=== PATIENT | female | born 1995 | race African-American/Black ===

== ENCOUNTER 2017-07-29 06:53 | Emergency (ER) | payer MEDICAID ==
[2017-07-29] MEDS ORDERED: Sodium Chloride 0.9% 10 ML Syringe FLUSH PRN (07:48)
[2017-07-29] MEDS ORDERED: Ondansetron 4 MG/2 ML SDV IVPUSH ONE (07:48)
[2017-07-29] MEDS ORDERED: HYDROmorphone 0.5 MG/0.5 ML Syringe IVPUSH ONE (07:49)
--- NOTE | 2017-07-29 07:54 | EDM.PDOC ---
ED HPI GENERAL MEDICAL PROBLEM - General Chief Complaint: Abdominal Pain Stated Complaint: LEFT PAIN IN STOMACH AREA Time Seen by Provider: 07/29/17 07:51 Source of Information: Reports: Patient History Limitations: Reports: No Limitations - History of Present Illness INITIAL COMMENTS - FREE TEXT/NARRATIVE: pt arrived with acute pain in the left lower abdoman. She was at work at [employer] and she suddenly developed pain at about 2 am. She had a period the first part of the month but is not on any control. She has no history of ovarian cysts. Onset: Today, Other ( This started at 2 am today) Duration: Hour(s):, Getting Worse Location: Reports: Abdomen Associated Symptoms: Reports: Other ( severe left lower abdomanal pain. ) Left Lower Abdomen Pain Score (Numeric/FACES): 10 - Related Data Allergies Allergy/AdvReac Type Severity Reaction Status Date / Time bee venom protein (honey bee) Allergy Hives Verified 07/29/17 07:22 lactose Allergy Abdominal Verified 07/29/17 07:22 Pain peanut Allergy Hives Verified 07/29/17 07:22 Home Meds: Home Meds NK [No Known Home Meds] 07/29/17 [History] Past Medical History - Past Health History Medical/Surgical History: Denies Medical/Surgical History Social & Family History - Tobacco Use Smoking Status *Q: Current Every Day Smoker Years of Tobacco use: 4 Packs/Tins Daily: 0.5 - Caffeine Use Caffeine Use: Reports: Tea - Recreational Drug Use Recreational Drug Use: Yes Recreational Drug Type: Reports: Marijuana/Hashish ED ROS GENERAL - Review of Systems Review Of Systems: See Below Constitutional: Reports: No Symptoms HEENT: Reports: No Symptoms Respiratory: Reports: No Symptoms Cardiovascular: Reports: No Symptoms Endocrine: Reports: No Symptoms GI/Abdominal: Reports: Abdominal Pain, Other (pt has severe pain in the left lower abdoman. ) : Reports: No Symptoms Musculoskeletal: Reports: No Symptoms Skin: Reports: No Symptoms ED EXAM, GI/ABD - Physical Exam Exam: See Below Text/Narrative:: At 2 am pt developed a sudden onset of pain and she became very uncomfortable. She continued to be uncomfortable until arrival here. Exam Limited By: No Limitations General Appearance: Alert, Severe Distress Eyes: Bilateral: Normal Appearance, EOMI Ears: Normal TMs Nose: Normal Inspection Throat/Mouth: Normal Inspection Head: Atraumatic Neck: Normal Inspection Respiratory/Chest: No Respiratory Distress Cardiovascular: Regular Rate, Rhythm GI/Abdominal Exam: Soft, Other (pt is very tender in the left lower abdoman. ) (Female) Exam: Other ( no change in vag discharge. ) Rectal (Female) Exam: Deferred Back Exam: Normal Inspection Extremities: Normal Inspection Neurological: Alert, Oriented, Normal Cognition Psychiatric: Normal Affect Course - Vital Signs Last Recorded V/S: Last Vital Signs Temp 35.9 C 07/29/17 07:17 Pulse 74 07/29/17 08:59 Resp 16 07/29/17 08:59 BP 142/73 H 07/29/17 08:59 Pulse Ox 97 07/29/17 08:59 - Orders/Labs/Meds Orders: Active Orders 24 hr Category Date Time Status Pelvis Non OB Comp [US] Stat Exams 07/29/17 08:38 Taken Transvaginal Non OB [US] Stat Exams 07/29/17 08:38 Taken Sodium Chloride 0.9% [Normal Saline] 1,000 ml Med 07/29/17 08:00 Active IV ASDIRECTED Sodium Chloride 0.9% [Saline Flush] Med 07/29/17 07:48 Active 10 ml FLUSH ASDIRECTED PRN Saline Lock Insert [OM.PC] Routine Oth 07/29/17 07:48 Ordered Medication Orders Sodium Chloride (Normal Saline) 1,000 mls @ 999 mls/hr IV ASDIRECTED LISA Last Admin: 07/29/17 08:07 Dose: 999 mls/hr Sodium Chloride (Saline Flush) 10 ml FLUSH ASDIRECTED PRN PRN Reason: Keep Vein Open Last Admin: 07/29/17 08:07 Dose: 10 ml Labs: Laboratory Tests 07/29/17 07/29/17 07/29/17 Range/Units 07:58 07:58 08:00 WBC 6.6 (4.5-11.0) K/uL RBC 4.17 (3.30-5.50) M/uL Hgb 12.4 (12.0-15.0) g/dL Hct 36.5 (36.0-48.0) % MCV 88 (80-98) fL MCH 30 (27-31) pg MCHC 34 (32-36) % Plt Count 248 (150-400) K/uL Neut % (Auto) 55 (36-66) % Lymph % (Auto) 37 (24-44) % [place] % (Auto) 8 H (2-6) % Eos % (Auto) 1 L (2-4) % Baso % (Auto) 1 (0-1) % Sodium 141 (140-148) mmol/L Potassium 3.9 (3.6-5.2) mmol/L Chloride 105 (100-108) mmol/L Carbon Dioxide 27 (21-32) mmol/L Anion Gap 9.1 (5.0-14.0) mmol/L BUN 5 L (7-18) mg/dL Creatinine 0.7 (0.6-1.0) mg/dL Est Cr Clr Drug Dosing 106.93 mL/min Estimated GFR (MDRD) > 60 (>60) Glucose 88 (74-106) mg/dL Calcium 8.7 (8.5-10.1) mg/dL Total Bilirubin 0.3 (0.2-1.0) mg/dL AST 17 (15-37) U/L ALT 19 (12-78) U/L Alkaline Phosphatase 51 (46-116) U/L C-Reactive Protein 0.04 (0.0-0.3) mg/dL Total Protein 6.2 L (6.4-8.2) g/dL Albumin 3.8 (3.4-5.0) g/dL Globulin 2.4 (2.3-3.5) g/dL Albumin/Globulin Ratio 1.6 (1.2-2.2) Urine Color Urine Appearance Urine pH (4.5-8.0) Ur Specific [place] (1.008-1.030) Urine Protein (NEGATIVE) mg/dL Urine Glucose (UA) (NEGATIVE) mg/dL Urine Ketones (NEGATIVE) mg/dL Urine Occult Blood (NEGATIVE) Urine Nitrite (NEGATIVE) Urine Bilirubin (NEGATIVE) Urine Urobilinogen (NORMAL) mg/dL Ur Leukocyte Esterase (NEGATIVE) Urine RBC (0-5) Urine WBC (0-5) Ur Epithelial Cells Amorphous Sediment Urine Bacteria Urine Mucus Urine HCG, Qual Negative 07/29/17 Range/Units 08:00 WBC (4.5-11.0) K/uL RBC (3.30-5.50) M/uL Hgb (12.0-15.0) g/dL Hct (36.0-48.0) % MCV (80-98) fL MCH (27-31) pg MCHC (32-36) % Plt Count (150-400) K/uL Neut % (Auto) (36-66) % Lymph % (Auto) (24-44) % [place] % (Auto) (2-6) % Eos % (Auto) (2-4) % Baso % (Auto) (0-1) % Sodium (140-148) mmol/L Potassium (3.6-5.2) mmol/L Chloride (100-108) mmol/L Carbon Dioxide (21-32) mmol/L Anion Gap (5.0-14.0) mmol/L BUN (7-18) mg/dL Creatinine (0.6-1.0) mg/dL Est Cr Clr Drug Dosing mL/min Estimated GFR (MDRD) (>60) Glucose (74-106) mg/dL Calcium (8.5-10.1) mg/dL Total Bilirubin (0.2-1.0) mg/dL AST (15-37) U/L ALT (12-78) U/L Alkaline Phosphatase (46-116) U/L C-Reactive Protein (0.0-0.3) mg/dL Total Protein (6.4-8.2) g/dL Albumin (3.4-5.0) g/dL Globulin (2.3-3.5) g/dL Albumin/Globulin Ratio (1.2-2.2) Urine Color Yellow Urine Appearance Clear Urine pH 7.0 (4.5-8.0) Ur Specific [place] 1.005 L (1.008-1.030) Urine Protein Negative (NEGATIVE) mg/dL Urine Glucose (UA) Normal (NEGATIVE) mg/dL Urine Ketones Negative (NEGATIVE) mg/dL Urine Occult Blood Negative (NEGATIVE) Urine Nitrite Negative (NEGATIVE) Urine Bilirubin Negative (NEGATIVE) Urine Urobilinogen Normal (NORMAL) mg/dL Ur Leukocyte Esterase Negative (NEGATIVE) Urine RBC Not seen (0-5) Urine WBC Not seen (0-5) Ur Epithelial Cells Moderate Amorphous Sediment Not seen Urine Bacteria Few Urine Mucus Not seen Urine HCG, Qual Meds: Medications Generic Name Dose Route Start Last Admin Trade Name Freq PRN Reason Stop Dose Admin Sodium Chloride 1,000 mls @ 999 mls/hr 07/29/17 08:00 07/29/17 08:07 Normal Saline IV 999 mls/hr ASDIRECTED LISA Administration Sodium Chloride 10 ml 07/29/17 07:48 07/29/17 08:07 Saline Flush FLUSH 10 ml ASDIRECTED PRN Administration Keep Vein Open Discontinued Medications Generic Name Dose Route Start Last Admin Trade Name Lucasq PRN Reason Stop Dose Admin Hydromorphone HCl 0.5 mg 07/29/17 07:49 07/29/17 08:11 Dilaudid IVPUSH 07/29/17 07:50 0.5 mg ONETIME ONE Administration Ketorolac Tromethamine 30 mg 07/29/17 09:37 07/29/17 09:48 Toradol IVPUSH 07/29/17 09:38 30 mg ONETIME ONE Administration Ondansetron HCl 4 mg 07/29/17 07:48 07/29/17 08:09 Zofran IVPUSH 07/29/17 07:49 4 mg ONETIME ONE Administration - Re-Assessments/Exams Free Text/Narrative Re-Assessment/Exam: 07/29/17 09:54 pt had normal lab work. She had a US which showed some free fluid in the abdoman like A ovarian cyst could have ruptured. Departure - Departure Time of Disposition: 10:21 Disposition: Home, Self-Care 01 Condition: Fair Clinical Impression: Ovarian cyst - Discharge Information Referrals: PCP,None [Primary Care Provider] - Forms: ED Department Discharge Care Plan Goals: rtc if pain should get alot worse. torodol 10mg qid for the next 4-5 days, norco 5/325 q6h prn for pain-severe - My Orders Last 24 Hours: My Active Orders 07/29/17 07:48 Sodium Chloride 0.9% [Saline Flush] 10 ml FLUSH ASDIRECTED PRN Saline Lock Insert [OM.PC] Routine 07/29/17 08:00 Sodium Chloride 0.9% [Normal Saline] 1,000 ml IV ASDIRECTED 07/29/17 08:38 Pelvis Non OB Comp [US] Stat Transvaginal Non OB [US] Stat - Assessment/Plan Last 24 Hours: My Active Orders 07/29/17 07:48 Sodium Chloride 0.9% [Saline Flush] 10 ml FLUSH ASDIRECTED PRN Saline Lock Insert [OM.PC] Routine 07/29/17 08:00 Sodium Chloride 0.9% [Normal Saline] 1,000 ml IV ASDIRECTED 07/29/17 08:38 Pelvis Non OB Comp [US] Stat Transvaginal Non OB [US] Stat
[2017-07-29] MEDS ORDERED: Sodium Chloride 0.9% 1,000 ML IV SCH (08:00)
[2017-07-29] MEDS ORDERED: Ketorolac 30 MG/ML SDV IVPUSH ONE (09:37)
--- NOTE | 2017-07-29 10:52 | US ---
Pelvis Non OB Comp, Transvaginal Non OB INDICATION: severe left lower abdominal pain. FINDINGS: The uterus measures 9.1 x 3.2 x 4.5 cm. Endometrial stripe measures 9 mm. Left and right ov rula are normal in appearance with normal vascular flow. Small amount of free fluid adjacent to the left ovary. Exam otherwise negative. IMPRESSION: Normal pelvic ultrasound. Small amount of free fluid adjacent to the left ovary could rep resent a recently ruptured follicle.
== END 2017-07-29 11:00 | disposition home or self-care (01) ==
LOC: JP.ED 06:53
DX: N83.202 Unspecified ovarian cyst, left side (principal); F17.210 Nicotine dependence, cigarettes, uncomplicated; Z91.011 Allergy to milk products; Z91.030 Bee allergy status; Z91.010 Allergy to peanuts
CPT/HCPCS: 36415; 76830; 76856; 80053; 81001; 81025; 85025; 86140; 96361; 96374; 96375; 99284; J1170; J1885; J2405; J7040; J7050; J7030

== ENCOUNTER 2018-01-03 12:44 | Emergency (ER) | payer MEDICAID ==
[2018-01-03] MEDS ORDERED: Ondansetron 4 MG/2 ML SDV IVPUSH ONE (14:13)
[2018-01-03] MEDS ORDERED: Sodium Chloride 0.9% 10 ML Syringe FLUSH PRN (14:13)
[2018-01-03] MEDS ORDERED: Sodium Chloride 0.9% 1,000 ML IV SCH ×2 (14:15→16:00)
--- NOTE | 2018-01-03 14:41 | EDM.PDOC ---
ED HPI GENERAL MEDICAL PROBLEM - General Chief Complaint: Gastrointestinal Problem Stated Complaint: vomiting PG 11 WEEKS Time Seen by Provider: 01/03/18 14:00 Source of Information: Reports: Patient History Limitations: Reports: No Limitations - History of Present Illness INITIAL COMMENTS - FREE TEXT/NARRATIVE: Amado is an otherwise healthy 22-year-old female who presents to the emergency department today with nausea, vomiting, diarrhea that started yesterday. Patient reports several episodes of nonbloody diarrhea since that time. Patient has been unable to keep any fluids/food or medication down. She has not taken anything for her symptoms. Patient is a , she is estimated 11 weeks , she denies any complaints. Patient does complain of mild abdominal pain, lower pelvic in nature. 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 ED EXAM, GI/ABD - Physical Exam Exam: See Below Exam Limited By: No Limitations General Appearance: Alert, WD/WN, No Apparent Distress Nose: Normal Inspection Throat/Mouth: Normal Oropharynx, Other (Modestly dry mucous membranes) Head: Atraumatic Respiratory/Chest: No Respiratory Distress, Lungs Clear Cardiovascular: Normal Peripheral Pulses, Regular Rate, Rhythm, No Murmur GI/Abdominal Exam: Normal Bowel Sounds, Soft, Tender (Mild tenderness noted to mid pelvic region on exam, no tenderness at McBurney's point. No guarding or rebound), Other Back Exam: Normal Inspection Extremities: Normal Inspection, Normal Range of Motion Neurological: Alert, Oriented Psychiatric: Normal Affect, Normal Mood Skin Exam: Warm, Dry, Intact Lymphatic: No Adenopathy Course - Vital Signs Last Recorded V/S: Last Vital Signs Temp 36.8 C 01/03/18 14:11 Pulse 70 01/03/18 14:36 Resp 16 01/03/18 14:36 BP 108/60 01/03/18 14:36 Pulse Ox 100 01/03/18 14:36 Aleksandra is an otherwise healthy 22 year old female who presents to the ED today with c/o diarrhea, nausea, and vomiting since yesterday. Please refer to HPI and focused exam. Patient arrives here hemodynamically stable and afebrile. Exam is reassuring. NO focal tenderness to indicate an acute appendicitis. Patient was given 2 liters of NS here in the ED with IV Zofran and is feeling much better. Tolerating oral. Blood work reassuring with normal white count and stable HGB. CMP returns with potassium of 3.5 and is otherwise unremarkable. Patient has ODT zofran at home, probiotics encouraged. Patient encouraged to stay well hydrated. Reasons to return to the ED discussed. Patient to follow up in clinic next week. Patient agreeable to plan of care and discharged in stable condition. - Orders/Labs/Meds Orders: Active Orders 24 hr Category Date Time Status Peripheral IV Care [RC] . DIRECTED Care 01/03/18 14:13 Active Sodium Chloride 0.9% [Normal Saline] 1,000 ml Med 01/03/18 14:15 Active IV ASDIRECTED Sodium Chloride 0.9% [Normal Saline] 1,000 ml Med 01/03/18 16:00 Ordered IV ASDIRECTED Sodium Chloride 0.9% [Saline Flush] Med 01/03/18 14:13 Active 10 ml FLUSH ASDIRECTED PRN Peripheral IV Insertion Adult [OM.PC] Routine Oth 01/03/18 14:13 Ordered Medication Orders Sodium Chloride (Normal Saline) 1,000 mls @ 999 mls/hr IV ASDIRECTED [facility] Last Admin: 01/03/18 14:31 Dose: 999 mls/hr Sodium Chloride (Normal Saline) 1,000 mls @ 999 mls/hr IV ASDIRECTED LISA Sodium Chloride (Saline Flush) 10 ml FLUSH ASDIRECTED PRN PRN Reason: Keep Vein Open Last Admin: 01/03/18 14:31 Dose: 10 ml Labs: Laboratory Tests 01/03/18 01/03/18 Range/Units 14:14 14:14 WBC 10.2 (4.5-11.0) K/uL RBC 4.19 (3.30-5.50) M/uL Hgb 12.7 (12.0-15.0) g/dL Hct 36.6 (36.0-48.0) % MCV 87 (80-98) fL MCH 30 (27-31) pg MCHC 35 (32-36) % Plt Count 247 (150-400) K/uL Neut % (Auto) 90 H (36-66) % Lymph % (Auto) 6 L (24-44) % [place] % (Auto) 4 (2-6) % Eos % (Auto) 0 L (2-4) % Baso % (Auto) 0 (0-1) % Sodium 136 L (140-148) mmol/L Potassium 3.5 L (3.6-5.2) mmol/L Chloride 103 (100-108) mmol/L Carbon Dioxide 25 (21-32) mmol/L Anion Gap 11.5 (5.0-14.0) mmol/L BUN 6 L (7-18) mg/dL Creatinine 0.6 (0.6-1.0) mg/dL Est Cr Clr Drug Dosing 129.15 mL/min Estimated GFR (MDRD) > 60 (>60) Glucose 93 (74-106) mg/dL Calcium 9.0 (8.5-10.1) mg/dL Total Bilirubin 0.3 (0.2-1.0) mg/dL AST 15 (15-37) U/L ALT 22 (12-78) U/L Alkaline Phosphatase 45 L (46-116) U/L Total Protein 7.0 (6.4-8.2) g/dL Albumin 3.7 (3.4-5.0) g/dL Globulin 3.3 (2.3-3.5) g/dL Albumin/Globulin Ratio 1.1 L (1.2-2.2) Lipase 70 L (73-393) U/L Meds: Medications Generic Name Dose Route Start Last Admin Trade Name Freq PRN Reason Stop Dose Admin Sodium Chloride 1,000 mls @ 999 mls/hr 01/03/18 14:15 01/03/18 14:31 Normal Saline IV 999 mls/hr ASDIRECTED LISA Administration Sodium Chloride 1,000 mls @ 999 mls/hr 01/03/18 16:00 Normal Saline IV ASDIRECTED LISA Sodium Chloride 10 ml 01/03/18 14:13 01/03/18 14:31 Saline Flush FLUSH 10 ml ASDIRECTED PRN Administration Keep Vein Open Discontinued Medications Generic Name Dose Route Start Last Admin Trade Name Freq PRN Reason Stop Dose Admin Ondansetron HCl 4 mg 01/03/18 14:13 01/03/18 14:31 Zofran IVPUSH 01/03/18 14:14 4 mg ONETIME ONE Administration Departure - Departure Time of Disposition: 16:45 Disposition: Home, Self-Care 01 Condition: Good Clinical Impression: Viral gastroenteritis - Discharge Information Instructions: Dehydration, Adult, [id number], Viral Gastroenteritis, Adult Referrals: Jania Fierro CNM [Primary Care Provider] - Forms: ED Department Discharge Additional Instructions: Take zofran at home as needed/prescribed. Stay well hydrated. You can take Tylenol for abdominal pain. Probiotics would be helpful for the diarrhea, such as Culturelle, this is over the counter at most pharmacies. Take care and I'm glad you are feeling better. - My Orders Last 24 Hours: My Active Orders 01/03/18 14:13 Peripheral IV Care [RC] . DIRECTED Sodium Chloride 0.9% [Saline Flush] 10 ml FLUSH ASDIRECTED PRN Peripheral IV Insertion Adult [OM.PC] Routine 01/03/18 14:15 Sodium Chloride 0.9% [Normal Saline] 1,000 ml IV ASDIRECTED 01/03/18 16:00 Sodium Chloride 0.9% [Normal Saline] 1,000 ml IV ASDIRECTED - Assessment/Plan Last 24 Hours: My Active Orders 01/03/18 14:13 Peripheral IV Care [RC] . DIRECTED Sodium Chloride 0.9% [Saline Flush] 10 ml FLUSH ASDIRECTED PRN Peripheral IV Insertion Adult [OM.PC] Routine 01/03/18 14:15 Sodium Chloride 0.9% [Normal Saline] 1,000 ml IV ASDIRECTED 01/03/18 16:00 Sodium Chloride 0.9% [Normal Saline] 1,000 ml IV ASDIRECTED
== END 2018-01-03 16:33 | disposition home or self-care (01) ==
LOC: JP.ED 12:44
DX: A08.4 Viral intestinal infection, unspecified (principal); Z91.030 Bee allergy status; Z91.010 Allergy to peanuts; Z91.011 Allergy to milk products; F17.210 Nicotine dependence, cigarettes, uncomplicated
CPT/HCPCS: 36415; 80053; 83690; 85025; 96361; 96374; 99284; J2405; J7030; J7050

== ENCOUNTER 2020-07-28 00:36 | Observation (INO) | payer MEDICAID ==
[2020-07-28] MEDS ORDERED: ePHEDrine 50 MG/ML SDV IVPUSH PRN ×2 (07:33)
[2020-07-28] MEDS ORDERED: Ondansetron 4 MG/2 ML SDV IV PRN (07:33)
[2020-07-28] MEDS ORDERED: Acetaminophen 325 MG Tab PO PRN (07:33)
[2020-07-28] MEDS ORDERED: diphenhydrAMINE 50 MG/ML SDV IVPUSH PRN ×2 (07:33)
[2020-07-28] MEDS ORDERED: Sodium Chloride 0.9% 10 ML Syringe FLUSH PRN (07:33)
[2020-07-28] MEDS ORDERED: Lactated Ringers 1,000 ML IV ONE (07:33)
[2020-07-28] MEDS ORDERED: Naloxone 0.4 MG/ML SDV IVPUSH PRN (07:33)
[2020-07-28] MEDS ORDERED: Misoprostol 50 MCG (1/2 of 100 MCG) Tab VAG ONE (07:42)
[2020-07-28] MEDS ORDERED: Ropivacaine 200 MG in Premix Bag 1 BAG EPIDUR SCH (07:45)
--- NOTE | 2020-07-28 08:33 | PCM.LDHP ---
L&D History of Present Illness - General Date of Service: 07/28/20 Admit Problem/Dx: Patient Status Order with Admit Dx/Problem 07/28/20 07:34 Patient Status [ADT] Routine Admission Diagnosis/Problem Admission Diagnosis/Problem Source of Information: Patient History Limitations: Reports: No Limitations - Related Data Allergies/Adverse Reactions: Allergies Allergy/AdvReac Type Severity Reaction Status Date / Time bee venom protein (honey bee) Allergy Hives Verified 07/29/17 07:22 lactose Allergy Abdominal Verified 07/29/17 07:22 Pain peanut Allergy Hives Verified 07/29/17 07:22 Home Medications: Home Meds Pnv No.95/Ferrous Fum/Folic AC [ Multivitamin Tablet] 1 tab PO DAILY 01/03/18 [History] hydrOXYzine HCL [Hydroxyzine HCl] 50 mg PO DAILY 07/28/20 [History] Past Medical History - Past Health History Medical/Surgical History: Denies Medical/Surgical History [employer] History: Reports: Neurological History: Reports: Migraines Psychiatric History: Reports: Anxiety, Dementia - Infectious Disease History Infectious Disease History: Reports: Chicken Pox Social & Family History - Family History Family Medical History: No Pertinent Family History HEENT: Reports: None Cardiac: Reports: Hypertension Respiratory: Reports: Asthma GI: Reports: Other (See Below) Other GI Family History: colitis : Reports: Other (See Below) Other Family History: mom CA right kidney OBGYN: Reports: Other (See Below) Other OBGYN Family History: mom; 1st baby 18 hrs, no c-sections Musculoskeletal: Reports: Arthritis Neurological: Reports: Neuropathy, Diabetic, Seizure Psychiatric: Reports: Anxiety, Bipolar, Depression Endocrine/Metabolic: Reports: Diabetes, Type I, Obesity/MBI 30+ Other Endocrine/Metabolic Family History: mom lost 125 pounds then - Tobacco Use Tobacco Use Status *Q: Heavy Tobacco User Years of Tobacco use: 6 Packs/Tins Daily: 1.5 - Caffeine Use Caffeine Use: Reports: Coffee, Soda - Recreational Drug Use Recreational Drug Use: No H&P Review of Systems - Review of Systems: Review Of Systems: See Below General: Reports: No Symptoms HEENT: Reports: No Symptoms Pulmonary: Reports: No Symptoms Cardiovascular: Reports: No Symptoms Gastrointestinal: Reports: No Symptoms Genitourinary: Reports: No Symptoms Musculoskeletal: Reports: No Symptoms Skin: Reports: No Symptoms Psychiatric: Reports: No Symptoms Neurological: Reports: No Symptoms Hematologic/Lymphatic: Reports: No Symptoms Immunologic: Reports: No Symptoms L&D Exam - Exam Exam: See Below - Vital Signs Vital Signs: Last Vital Signs Temp 36.7 C 07/28/20 07:45 Pulse 85 07/28/20 07:45 Resp 18 07/28/20 07:45 BP 107/83 07/28/20 07:45 Pulse Ox 98 07/28/20 07:45 - OB Specific Contraction Frequency (min): NONE Contraction Intensity: Mild Movement: Active Heart Tones: Present Heart Rate (FHR) Variability: Moderate (6-25 bmp) Presentation: Vertex - Ibanez Score Ibanez Score Cervix Position: Midposition Ibanez Score Consistency: Soft Ibanez Score Effacement: 51-70% Ibanez Score Dilation: 1-2 cm Ibanez Score Infant's Station: -2 Ibanez Score Total: 7 - Exam General: Alert, Oriented, Cooperative HEENT: PERRLA, Conjunctiva Clear, EACs Clear, EOMI, Hearing Intact, Mucosa Moist & [place], Nares Patent, Normal Nasal Septum, Posterior Pharynx Clear, TMs Clear Neck: Supple, Trachea Midline Lungs: Clear to Auscultation, Normal Respiratory Effort Cardiovascular: Regular Rate, Regular Rhythm GI/Abdominal Exam: Normal Bowel Sounds, Soft, Non-Tender, No Organomegaly, No Distention, No Abnormal Bruit, No Mass, Pelvis Stable Rectal Exam: Normal Exam, Normal Rectal Tone Genitourinary: Normal external exam, Normal bimanual exam, Normal speculum exam Back Exam: Normal Inspection, Full Range of Motion Extremities: Normal Inspection, Normal Range of Motion, Non-Tender, No Pedal Edema, Normal Capillary Refill Skin: Warm, Dry, Intact Neurological: Cranial Nerves Intact, Reflexes Equal Bilateral Psychiatric: Alert, Normal Affect, Normal Mood - Patient Data Lab Results Last 24 hrs: Laboratory Results - last 24 hr 07/28/20 07/28/20 07/28/20 Range/Units 07:07 07:07 07:08 WBC 13.8 H (4.5-11.0) K/uL RBC 4.01 (3.30-5.50) M/uL Hgb 12.0 (12.0-15.0) g/dL Hct 36.2 (36.0-48.0) % MCV 90 (80-98) fL MCH 30 (27-31) pg MCHC 33 (32-36) % Plt Count 277 (150-400) K/uL Neut % (Auto) 73 H (36-66) % Lymph % (Auto) 18 L (24-44) % Boyle % (Auto) 7 H (2-6) % Eos % (Auto) 1 L (2-4) % Baso % (Auto) 0 (0-1) % Urine Color Yellow (YELLOW) Urine Appearance Slightly cloudy A (CLEAR) Urine pH 6.5 (5.0-8.0) Ur Specific Isabel >= 1.030 (1.008-1.030) Urine Protein Negative (NEGATIVE) mg/dL Urine Glucose (UA) Negative (NEGATIVE) mg/dL Urine Ketones Negative (NEGATIVE) mg/dL Urine Occult Blood Negative (NEGATIVE) Urine Nitrite Negative (NEGATIVE) Urine Bilirubin Negative (NEGATIVE) Urine Urobilinogen 0.2 (0.2-1.0) EU/dL Ur Leukocyte Esterase Trace H (NEGATIVE) Urine RBC Not seen (0-5) Urine WBC 5-10 H (0-5) Ur Epithelial Cells Many Amorphous Sediment Not seen Urine Bacteria Many Urine Mucus Not seen Urine Opiates Screen Negative (NEGATIVE) Ur Oxycodone Screen Negative (NEGATIVE) Urine Methadone Screen Negative (NEGATIVE) Ur Propoxyphene Screen Negative (NEGATIVE) Ur Barbiturates Screen Negative (NEGATIVE) Ur Tricyclics Screen Negative (NEGATIVE) Ur Phencyclidine Scrn Negative (NEGATIVE) Ur Amphetamine Screen Negative (NEGATIVE) U Methamphetamines Scrn Negative (NEGATIVE) Urine MDMA Screen Negative (NEGATIVE) U Benzodiazepines Scrn Negative (NEGATIVE) U Cocaine Metab Screen Negative (NEGATIVE) U Marijuana (THC) Screen Negative (NEGATIVE) Result Diagrams: 07/28/20 07:08 - Problem List (1) SNOMED Code(s): 48983346 ICD Code: Z34.90 - ENCNTR FOR SUPRVSN OF NORMAL , UNSP, UNSP TRIMESTER Status: Acute Current Visit: Yes Qualifiers: Weeks of gestation: 39 weeks Qualified Code(s): Z3A.39 - 39 weeks gestation of (2) Encounter for induction of labor SNOMED Code(s): 018469535 ICD Code: Z34.90 - ENCNTR FOR SUPRVSN OF NORMAL , UNSP, UNSP TRIMESTER Status: Acute Current Visit: Yes (3) Abnormal placenta SNOMED Code(s): 756650485 ICD Code: O43.109 - MALFORMATION OF PLACENTA, UNSPECIFIED, UNSPECIFIED TR IMESTER Status: Acute Current Visit: Yes (4) Tobacco abuse SNOMED Code(s): 166867923 ICD Code: Z72.0 - TOBACCO USE Status: Acute Current Visit: No Problem List Initiated/Reviewed/Updated: Yes Orders Last 24hrs: Active Orders 24 hr Category Date Time Status Patient Status [ADT] Routine ADT 07/28/20 07:34 Active Ambulate [RC] PER UNIT ROUTINE Care 07/28/20 07:33 Active Communication Order [RC] ASDIRECTED Care 07/28/20 07:34 Active Communication Order [RC] ASDIRECTED Care 07/28/20 07:34 Active Communication Order [RC] ROUTINE Care 07/28/20 07:34 Active Communication Order [RC] ROUTINE Care 07/28/20 07:34 Active Communication Order [RC] ROUTINE Care 07/28/20 07:34 Active Insert Urinary Catheter [OM.PC] ASDIRECTED Care 07/28/20 07:45 Ordered May Shower [RC] ASDIRECTED Care 07/28/20 07:33 Active Notify Provider Vital Signs [RC] PRN Care 07/28/20 07:39 Active Notify Provider [RC] PRN Care 07/28/20 07:34 Active Oxygen Therapy [RC] ASDIRECTED Care 07/28/20 07:34 Active PCEA Epidural [RC] ASDIRECTED Care 07/28/20 07:34 Active Peripheral IV Care [RC] . DIRECTED Care 07/28/20 07:35 Active Pulse Oximetry [RC] ASDIRECTED Care 07/28/20 07:34 Active Up ad [place] [RC] ASDIRECTED Care 07/28/20 07:33 Active Up to Chair [RC] QID Care 07/28/20 07:33 Active Urinary Catheter Assessment [RC] ASDIRECTED Care 07/28/20 07:35 Active VTE/DVT Education [RC] Click to Edit Care 07/28/20 07:39 Active Vital Signs [RC] PER UNIT ROUTINE Care 07/28/20 07:34 Active Regular Diet [DIET] Diet 07/28/20 Breakfast Active BPP w NST [US] Urgent Exams 07/28/20 07:06 Taken Acetaminophen [TylenoL] Med 07/28/20 07:33 Active 650 mg PO Q4H PRN Lactated Ringers [Ringers, Lactated] 1,000 ml Med 07/28/20 07:33 Active IV .BOLUS Naloxone [Narcan] Med 07/28/20 07:33 Active 0.1 mg IVPUSH ASDIRECTED PRN Ondansetron [Zofran] Med 07/28/20 07:33 Active 4 mg IV Q4H PRN Ropivacaine [Naropin 0.2%] 200 mg Med 07/28/20 07:45 Active Premix Bag 1 bag EPIDUR ASDIRECTED Sodium Chloride 0.9% [Saline Flush] Med 07/28/20 07:33 Active 10 ml FLUSH ASDIRECTED PRN diphenhydrAMINE [Benadryl] Med 07/28/20 07:33 Active 25 mg IVPUSH Q6H PRN diphenhydrAMINE [Benadryl] Med 07/28/20 07:33 Active 50 mg IVPUSH Q6H PRN ePHEDrine [ePHEDrine sulfate] Med 07/28/20 07:33 Active 10 mg IVPUSH ASDIRECTED PRN ePHEDrine [ePHEDrine sulfate] Med 07/28/20 07:33 Active 10 mg IVPUSH ASDIRECTED PRN DVT/VTE Prophylaxis Reflex [OM.PC] Routine Oth 07/28/20 07:33 Ordered Epidural Catheter Management [OM.PC] Routine Oth 07/28/20 07:34 Ordered Epidural Catheter Management [OM.PC] Urgent Oth 07/28/20 07:34 Ordered Peripheral IV Insertion Pediatric [OM.PC] Routine Oth 07/28/20 07:34 Ordered Saline Lock Insert [OM.PC] Routine Oth 07/28/20 07:34 Ordered Resuscitation Status Routine Resus Stat 07/28/20 07:33 Ordered Medication Orders Acetaminophen (Tylenol) 650 mg PO Q4H PRN PRN Reason: Pain (Mild 1-3) and fever Diphenhydramine HCl (Benadryl) 25 mg IVPUSH Q6H PRN PRN Reason: Itching Diphenhydramine HCl (Benadryl) 50 mg IVPUSH Q6H PRN PRN Reason: Itching Ephedrine Sulfate (Ephedrine Sulfate) 10 mg IVPUSH ASDIRECTED PRN PRN Reason: Hypotension Ephedrine Sulfate (Ephedrine Sulfate) 10 mg IVPUSH ASDIRECTED PRN PRN Reason: Hypotension Lactated Ringer's (Ringers, Lactated) 1,000 mls @ 999 mls/hr IV .BOLUS ONE Stop: 07/28/20 08:33 Ropivacaine 200 mg/ Premix 100 mls @ 0 mls/hr EPIDUR ASDIRECTED LISA Naloxone HCl (Narcan) 0.1 mg IVPUSH ASDIRECTED PRN PRN Reason: Oversedation Ondansetron HCl (Zofran) 4 mg IV Q4H PRN PRN Reason: Nausea/Vomiting Sodium Chloride (Saline Flush) 10 ml FLUSH ASDIRECTED PRN PRN Reason: Keep Vein Open Assessment/Plan Comment:: 07/28/2020 24 yo here at 39 2/7 gestational weeks for induction of labor due to heavy smoker and grade three placenta. Patient was educated on induction risks and benefits and agrees with plan of care. SVE-//-1 Cytotec 50mcg placed vaginally BPP-8/8 FHTs category one Labs-B positive, Hep B neg, Hep C neg, HIV neg, RPR nonreactive, GBS negative, Rubella Immune Plan- Continue to monitor labor Continue to monitor FHTs Up ad marbella after cytotec hour May tub bathe or shower May eat regular diet till decides on epidural Epidural when in active labor per patient request Plan and anticipate a vaginal delivery
--- NOTE | 2020-07-28 09:24 | US ---
BPP w NST INDICATION: induction of labor COMPARISON: None FINDINGS: Single live IUP in: Cephalic position. heart rate: 152 BPM. Biophysical profile score: 8/8. YENNIFER: 16.4 cm. IMPRESSION: Normal biophysical profile score of 8/8.
[2020-07-28] MEDS ORDERED: Lactated Ringers 1,000 ML IV SCH (13:00)
--- NOTE | 2020-07-28 13:24 | PCM.PNLD ---
Labor Progress Note - VS & Meds Vital Signs: Last Vital Signs Temp 36.7 C 07/28/20 07:45 Pulse 81 07/28/20 11:33 Resp 18 07/28/20 11:33 BP 114/68 07/28/20 11:33 Pulse Ox 96 07/28/20 11:33 Active Medications: Current Medications Acetaminophen (Tylenol) 650 mg PO Q4H PRN PRN Reason: Pain (Mild 1-3) and fever Diphenhydramine HCl (Benadryl) 25 mg IVPUSH Q6H PRN PRN Reason: Itching Diphenhydramine HCl (Benadryl) 50 mg IVPUSH Q6H PRN PRN Reason: Itching Ephedrine Sulfate (Ephedrine Sulfate) 10 mg IVPUSH ASDIRECTED PRN PRN Reason: Hypotension Ephedrine Sulfate (Ephedrine Sulfate) 10 mg IVPUSH ASDIRECTED PRN PRN Reason: Hypotension Ropivacaine 200 mg/ Premix 100 mls @ 0 mls/hr EPIDUR ASDIRECTED LISA Oxytocin/Sodium Chloride (Pitocin In Ns 20 Units/1,000 Ml) 20 unit in 1,000 mls @ 6 mls/hr IV TITRATE LISA; Protocol Lactated Ringer's (Ringers, Lactated) 1,000 mls @ 125 mls/hr IV ASDIRECTED LISA Naloxone HCl (Narcan) 0.1 mg IVPUSH ASDIRECTED PRN PRN Reason: Oversedation Ondansetron HCl (Zofran) 4 mg IV Q4H PRN PRN Reason: Nausea/Vomiting Sodium Chloride (Saline Flush) 10 ml FLUSH ASDIRECTED PRN PRN Reason: Keep Vein Open Discontinued Medications Lactated Ringer's (Ringers, Lactated) 1,000 mls @ 999 mls/hr IV .BOLUS ONE Stop: 07/28/20 08:33 Last Admin: 07/28/20 09:06 Dose: 999 mls/hr Documented by: Misoprostol (Cytotec) 50 mcg VAG ONETIME ONE Stop: 07/28/20 07:43 Last Admin: 07/28/20 08:13 Dose: 50 mcg Documented by: - Uterine Contractions Uterine Monitoring Mode: External [place] Contraction Frequency (min): 2-4 Contraction Duration (sec): 30-60 Contraction Intensity: Mild to Moderate Uterine Resting Tone: Soft - Monitoring Monitor Mode: External Ultrasound Heart Rate (FHR) Variability: Moderate (6-25 bmp) - Vaginal Exam Dilation (cm): 1.5 Effacement (Percent): 80 Station: -1 Sterile Vaginal Exam Performed By: Krysten Solis - Labor Progress (Free Text) Labor Progress: 07/28/2020 Patient doing well and tolerating contractions with position change SVE-1-2/80/-1 more anterior now FHTS category one Plan- Continue to monitor labor Continue to monitor FHTs Start Pitocin per protocol Patient can get in tub per her request Pain management per patient request Plan and anticipate a vaginal delivery
--- NOTE | 2020-07-29 07:39 | PCM.PNLD ---
Labor Progress Note - VS & Meds Vital Signs: Last Vital Signs Temp 36.7 C 07/28/20 14:18 Pulse 83 07/28/20 14:18 Resp 18 07/28/20 14:18 BP 105/62 07/28/20 14:18 Pulse Ox 97 07/28/20 14:18 Active Medications: Current Medications Discontinued Medications Acetaminophen (Tylenol) 650 mg PO Q4H PRN PRN Reason: Pain (Mild 1-3) and fever Diphenhydramine HCl (Benadryl) 25 mg IVPUSH Q6H PRN PRN Reason: Itching Diphenhydramine HCl (Benadryl) 50 mg IVPUSH Q6H PRN PRN Reason: Itching Ephedrine Sulfate (Ephedrine Sulfate) 10 mg IVPUSH ASDIRECTED PRN PRN Reason: Hypotension Ephedrine Sulfate (Ephedrine Sulfate) 10 mg IVPUSH ASDIRECTED PRN PRN Reason: Hypotension Lactated Ringer's (Ringers, Lactated) 1,000 mls @ 999 mls/hr IV .BOLUS ONE Stop: 07/28/20 08:33 Last Admin: 07/28/20 09:06 Dose: 999 mls/hr Documented by: Ropivacaine 200 mg/ Premix 100 mls @ 0 mls/hr EPIDUR ASDIRECTED LISA Oxytocin/Sodium Chloride (Pitocin In Ns 20 Units/1,000 Ml) 20 unit in 1,000 mls @ 6 mls/hr IV TITRATE LISA; Protocol Last Titration: 07/28/20 17:14 Dose: 0 munits/min, 0 mls/hr Documented by: Lactated Ringer's (Ringers, Lactated) 1,000 mls @ 125 mls/hr IV ASDIRECTED LISA Last Admin: 07/28/20 13:22 Dose: 125 mls/hr Documented by: Misoprostol (Cytotec) 50 mcg VAG ONETIME ONE Stop: 07/28/20 07:43 Last Admin: 07/28/20 08:13 Dose: 50 mcg Documented by: Naloxone HCl (Narcan) 0.1 mg IVPUSH ASDIRECTED PRN PRN Reason: Oversedation Ondansetron HCl (Zofran) 4 mg IV Q4H PRN PRN Reason: Nausea/Vomiting Sodium Chloride (Saline Flush) 10 ml FLUSH ASDIRECTED PRN PRN Reason: Keep Vein Open - Uterine Contractions Uterine Monitoring Mode: External [place] Contraction Frequency (min): 2.5-5 Contraction Duration (sec): 60 Contraction Intensity: Mild Uterine Resting Tone: Soft - Monitoring Monitor Mode: External Ultrasound Heart Rate (FHR) Variability: Moderate (6-25 bmp) - Vaginal Exam Dilation (cm): 1-2 Effacement (Percent): 80 Station: -1 Cervical Position: Midposition Sterile Vaginal Exam Performed By: Krysten Solis - Labor Progress (Free Text) Labor Progress: 07/28/2020 Patient even though feels contractions are strong and at times are too close together to increase the pitocin she is still not progressing SVE-slight change with 1-2/80/-1 and more midline, but not adequate for epidural or rupture of membranes without risk Education done with patient that she could do three different items. 1. We could pause pitocin, rest, eat, then place another cytotec this evening 2. We could pause all and sleep and restart early am like 0400 with induction 3. She could stop pitocin if contractions space and she gets more comfortable and FHTS stable she could go home an return at a later date for induction trial again if doesn't come in labor on her own. FHTs category one currently and contractions anywhere from 1-2.5 minutes but mild Her and significant other would like time to discuss options.
--- NOTE | 2020-07-29 07:43 | PCM.PNLD ---
Labor Progress Note - VS & Meds Vital Signs: Last Vital Signs Temp 36.7 C 07/28/20 14:18 Pulse 83 07/28/20 14:18 Resp 18 07/28/20 14:18 BP 105/62 07/28/20 14:18 Pulse Ox 97 07/28/20 14:18 Active Medications: Current Medications Discontinued Medications Acetaminophen (Tylenol) 650 mg PO Q4H PRN PRN Reason: Pain (Mild 1-3) and fever Diphenhydramine HCl (Benadryl) 25 mg IVPUSH Q6H PRN PRN Reason: Itching Diphenhydramine HCl (Benadryl) 50 mg IVPUSH Q6H PRN PRN Reason: Itching Ephedrine Sulfate (Ephedrine Sulfate) 10 mg IVPUSH ASDIRECTED PRN PRN Reason: Hypotension Ephedrine Sulfate (Ephedrine Sulfate) 10 mg IVPUSH ASDIRECTED PRN PRN Reason: Hypotension Lactated Ringer's (Ringers, Lactated) 1,000 mls @ 999 mls/hr IV .BOLUS ONE Stop: 07/28/20 08:33 Last Admin: 07/28/20 09:06 Dose: 999 mls/hr Documented by: Ropivacaine 200 mg/ Premix 100 mls @ 0 mls/hr EPIDUR ASDIRECTED LISA Oxytocin/Sodium Chloride (Pitocin In Ns 20 Units/1,000 Ml) 20 unit in 1,000 mls @ 6 mls/hr IV TITRATE LISA; Protocol Last Titration: 07/28/20 17:14 Dose: 0 munits/min, 0 mls/hr Documented by: Lactated Ringer's (Ringers, Lactated) 1,000 mls @ 125 mls/hr IV ASDIRECTED LISA Last Admin: 07/28/20 13:22 Dose: 125 mls/hr Documented by: Misoprostol (Cytotec) 50 mcg VAG ONETIME ONE Stop: 07/28/20 07:43 Last Admin: 07/28/20 08:13 Dose: 50 mcg Documented by: Naloxone HCl (Narcan) 0.1 mg IVPUSH ASDIRECTED PRN PRN Reason: Oversedation Ondansetron HCl (Zofran) 4 mg IV Q4H PRN PRN Reason: Nausea/Vomiting Sodium Chloride (Saline Flush) 10 ml FLUSH ASDIRECTED PRN PRN Reason: Keep Vein Open - Uterine Contractions Uterine Monitoring Mode: External [place] Contraction Frequency (min): 2.5-5 Contraction Duration (sec): 60 Contraction Intensity: Mild Uterine Resting Tone: Soft - Monitoring Monitor Mode: External Ultrasound Heart Rate (FHR) Variability: Moderate (6-25 bmp) - Vaginal Exam Dilation (cm): 1-2 Effacement (Percent): 80 Station: -1 Cervical Position: Midposition Sterile Vaginal Exam Performed By: Krysten Solis - Labor Progress (Free Text) Labor Progress: 07/28/2020 Patient and significant other would like to go home. Discussed risks and benefits of this decision. Patient offered other induction dates and she would like to wait till next if no labor before this. Will plan a induction on 08/04/2020. Education done that she will need to be seen in clinic Saturday am if no labor for a check with provider. Patient and significant other verbalizes understanding of plan of care and agree with plan of care. Pitocin was stopped, waited till patient states she was comfortable and contractions had spaced out before discharging home Instructions on kick count, SROM, when to call labor and delivery and when to come in done with patient and significant other and they both verbalized understanding. Discharged home after nurse completed her needed tasks
== END 2020-07-28 17:58 | disposition home or self-care (01) ==
LOC: JP.OB 06:56
PROVIDERS: ADMIT Advanced Practice Midwife; ATTEND Advanced Practice Midwife
DX: O62.9 Abnormality of forces of labor, unspecified (principal); Z91.030 Bee allergy status; Z91.010 Allergy to peanuts; Z3A.39 39 weeks gestation of pregnancy
CPT/HCPCS: 36415; 76818; 80305; 81001; 85025; 96365; 96366; A9270; G0378; J2590; J7120

== ENCOUNTER 2020-08-04 06:45 | Inpatient (IN) | payer MEDICAID ==
[2020-08-04] MEDS ORDERED: Misoprostol 50 MCG (1/2 of 100 MCG) Tab VAG ONE (07:30)
[2020-08-04] MEDS ORDERED: Lactated Ringers 1,000 ML IV ONE ×2 (07:33→11:35)
[2020-08-04] MEDS ORDERED: Naloxone 0.4 MG/ML SDV IVPUSH PRN (07:33)
[2020-08-04] MEDS ORDERED: Acetaminophen 325 MG Tab PO PRN (07:33)
[2020-08-04] MEDS ORDERED: Ondansetron 4 MG/2 ML SDV IV PRN (07:33)
[2020-08-04] MEDS ORDERED: diphenhydrAMINE 50 MG/ML SDV IVPUSH PRN ×2 (07:33)
[2020-08-04] MEDS ORDERED: ePHEDrine 50 MG/ML SDV IVPUSH PRN ×2 (07:33)
[2020-08-04] MEDS ORDERED: Sodium Chloride 0.9% 10 ML Syringe FLUSH PRN (07:33)
[2020-08-04] MEDS ORDERED: Ropivacaine 200 MG in Premix Bag 1 BAG EPIDUR SCH (07:45)
--- NOTE | 2020-08-04 08:39 | PCM.LDHP ---
L&D History of Present Illness - General Date of Service: 08/04/20 Admit Problem/Dx: Patient Status Order with Admit Dx/Problem 08/04/20 07:33 Patient Status [ADT] Routine Admission Diagnosis/Problem Admission Diagnosis/Problem - Related Data Allergies/Adverse Reactions: Allergies Allergy/AdvReac Type Severity Reaction Status Date / Time bee venom protein (honey bee) Allergy Hives Verified 07/29/17 07:22 lactose Allergy Abdominal Verified 07/29/17 07:22 Pain peanut Allergy Hives Verified 07/29/17 07:22 Home Medications: Home Meds Pnv No.95/Ferrous Fum/Folic AC [ Multivitamin Tablet] 1 tab PO DAILY 01/03/18 [History] hydrOXYzine HCL [Hydroxyzine HCl] 50 mg PO DAILY 07/28/20 [History] Sertraline [Zoloft] 50 mg PO DAILY 08/04/20 [History] Past Medical History - Past Health History Medical/Surgical History: Denies 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: Neurological History: Reports: Migraines Psychiatric History: Reports: Anxiety, Depression - Infectious Disease History Infectious Disease History: Reports: Chicken Pox - Past Surgical History Neurological Surgical History: Reports: None Social & Family History - Family History Family Medical History: No Pertinent Family History HEENT: Reports: None Cardiac: Reports: Hypertension Respiratory: Reports: Asthma GI: Reports: Other (See Below) Other GI Family History: colitis : Reports: Other (See Below) Other Family History: mom CA right kidney OBGYN: Reports: Other (See Below) Other OBGYN Family History: mom; 1st baby 18 hrs, no c-sections Musculoskeletal: Reports: Arthritis Neurological: Reports: Neuropathy, Diabetic, Seizure Psychiatric: Reports: Anxiety, Bipolar, Depression Endocrine/Metabolic: Reports: Diabetes, Type I, Obesity/MBI 30+ Other Endocrine/Metabolic Family History: mom lost 125 pounds then - Tobacco Use Tobacco Use Status *Q: Current Every Day Tobacco User Years of Tobacco use: 10 Packs/Tins Daily: 1 - Caffeine Use Caffeine Use: Reports: Coffee - Recreational Drug Use Drug Use in Last 12 Months: Yes Recreational Drug Type: Reports: Marijuana/Hashish Recreational Drug Use Frequency: Socially H&P Review of Systems - Review of Systems: Review Of Systems: See Below General: Reports: No Symptoms HEENT: Reports: No Symptoms Pulmonary: Reports: No Symptoms Cardiovascular: Reports: No Symptoms Gastrointestinal: Reports: No Symptoms Genitourinary: Reports: No Symptoms Musculoskeletal: Reports: No Symptoms Skin: Reports: No Symptoms Psychiatric: Reports: No Symptoms Neurological: Reports: No Symptoms Hematologic/Lymphatic: Reports: No Symptoms Immunologic: Reports: No Symptoms L&D Exam - Exam Exam: See Below - Vital Signs Weight: 93 kg - OB Specific Contraction Intensity: Moderate Movement: Active Heart Tones: Present Heart Rate (FHR) Variability: Moderate (6-25 bmp) Presentation: Vertex - Ibanez Score Ibanez Score Cervix Position: Midposition Ibanez Score Consistency: Soft Ibanez Score Effacement: >80% Ibanez Score Dilation: 3-4 cm Ibanez Score 's Station: -1 ,0 Bianez Score Total: 10 - Exam General: Alert, Oriented, Cooperative HEENT: PERRLA, Conjunctiva Clear, EACs Clear, EOMI, Hearing Intact, Mucosa Moist & [place], Nares Patent, Normal Nasal Septum, Posterior Pharynx Clear, TMs Clear Neck: Supple, Trachea Midline Lungs: Clear to Auscultation, Normal Respiratory Effort Cardiovascular: Regular Rate, Regular Rhythm GI/Abdominal Exam: Normal Bowel Sounds, Soft, Non-Tender, No Organomegaly, No Distention, No Abnormal Bruit, No Mass, Pelvis Stable Rectal Exam: Normal Exam, Normal Rectal Tone Genitourinary: Normal external exam, Normal bimanual exam, Normal speculum exam Back Exam: Normal Inspection, Full Range of Motion Extremities: Normal Inspection, Normal Range of Motion, Non-Tender, No Pedal Edema, Normal Capillary Refill Skin: Warm, Dry, Intact Neurological: Cranial Nerves Intact, Reflexes Equal Bilateral Psychiatric: Alert, Normal Affect, Normal Mood - Patient Data Lab Results Last 24 hrs: Laboratory Results - last 24 hr 08/04/20 08/04/20 08/04/20 Range/Units 06:55 06:55 06:55 WBC 15.6 H (4.5-11.0) K/uL RBC 4.07 (3.30-5.50) M/uL Hgb 12.3 (12.0-15.0) g/dL Hct 36.7 (36.0-48.0) % MCV 90 (80-98) fL MCH 30 (27-31) pg MCHC 34 (32-36) % Plt Count 263 (150-400) K/uL Neut % (Auto) 75 H (36-66) % Lymph % (Auto) 17 L (24-44) % [place] % (Auto) 7 H (2-6) % Eos % (Auto) 1 L (2-4) % Baso % (Auto) 0 (0-1) % Urine Color Yellow (YELLOW) Urine Appearance Cloudy A (CLEAR) Urine pH 7.0 (5.0-8.0) Ur Specific [place] 1.025 (1.008-1.030) Urine Protein Negative (NEGATIVE) mg/dL Urine Glucose (UA) Negative (NEGATIVE) mg/dL Urine Ketones Negative (NEGATIVE) mg/dL Urine Occult Blood Trace-intact H (NEGATIVE) Urine Nitrite Negative (NEGATIVE) Urine Bilirubin Negative (NEGATIVE) Urine Urobilinogen 1.0 (0.2-1.0) EU/dL Ur Leukocyte Esterase Moderate H (NEGATIVE) Urine RBC 0-5 (0-5) Urine WBC 50-75 H (0-5) Ur Epithelial Cells Many Amorphous Sediment Not seen Urine Bacteria Moderate Urine Mucus Few Urine Opiates Screen Negative (NEGATIVE) Ur Oxycodone Screen Negative (NEGATIVE) Urine Methadone Screen Negative (NEGATIVE) Ur Propoxyphene Screen Negative (NEGATIVE) Ur Barbiturates Screen Negative (NEGATIVE) Ur Tricyclics Screen Negative (NEGATIVE) Ur Phencyclidine Scrn Negative (NEGATIVE) Ur Amphetamine Screen Negative (NEGATIVE) U Methamphetamines Scrn Negative (NEGATIVE) Urine MDMA Screen Negative (NEGATIVE) U Benzodiazepines Scrn Negative (NEGATIVE) U Cocaine Metab Screen Negative (NEGATIVE) U Marijuana (THC) Screen Negative (NEGATIVE) Result Diagrams: 08/04/20 06:55 - Problem List (1) Labor established SNOMED Code(s): 05809009 ICD Code: [id number] - Status: Acute Current Visit: Yes (2) SNOMED Code(s): 70866019 ICD Code: Z34.90 - ENCNTR FOR SUPRVSN OF NORMAL , UNSP, UNSP TRIMESTER Status: Acute Current Visit: No Qualifiers: Weeks of gestation: 40 weeks Qualified Code(s): Z3A.40 - 40 weeks gestation of (3) Tobacco abuse SNOMED Code(s): 966034966 ICD Code: Z72.0 - TOBACCO USE Status: Acute Current Visit: No Problem List Initiated/Reviewed/Updated: Yes Orders Last 24hrs: Active Orders 24 hr Category Date Time Status Patient Status [ADT] Routine ADT 08/04/20 07:33 Active Ambulate [RC] PER UNIT ROUTINE Care 08/04/20 07:33 Active Communication Order [RC] ASDIRECTED Care 08/04/20 07:33 Active Communication Order [RC] ASDIRECTED Care 08/04/20 07:33 Active Communication Order [RC] ROUTINE Care 08/04/20 07:33 Active Communication Order [RC] ROUTINE Care 08/04/20 07:33 Active Communication Order [RC] ROUTINE Care 08/04/20 07:33 Active Heart Tones [RC] PER UNIT ROUTINE Care 08/04/20 07:33 Active Non Stress Test [RC] Click to Edit Care 08/04/20 07:33 Active Insert Urinary Catheter [OM.PC] ASDIRECTED Care 08/04/20 07:45 Ordered Local Anesthetic Infusion Pump [RC] ASDIRECTED Care 08/04/20 07:33 Active Notify Provider Vital Signs [RC] PRN Care 08/04/20 07:33 Active Notify Provider [RC] PRN Care 08/04/20 07:33 Active Oxygen Therapy [RC] ASDIRECTED Care 08/04/20 07:33 Active PCEA Epidural [RC] ASDIRECTED Care 08/04/20 07:34 Active Peripheral IV Care [RC] . DIRECTED Care 08/04/20 07:34 Active Pulse Oximetry [RC] ASDIRECTED Care 08/04/20 07:33 Active Up ad [place] [RC] ASDIRECTED Care 08/04/20 07:33 Active Urinary Catheter Assessment [RC] ASDIRECTED Care 08/04/20 07:34 Active VTE/DVT Education [RC] Click to Edit Care 08/04/20 07:36 Active Vital Signs [RC] PER UNIT ROUTINE Care 08/04/20 07:33 Active CBC WITH AUTO DIFF [HEME] Urgent Lab 08/04/20 07:33 Ordered UA W/MICROSCOPIC [URIN] Routine Lab 08/04/20 07:33 Ordered Acetaminophen [TylenoL] Med 08/04/20 07:33 Active 650 mg PO Q4H PRN Lactated Ringers [Ringers, Lactated] 1,000 ml Med 08/04/20 07:33 Active IV .BOLUS Naloxone [Narcan] Med 08/04/20 07:33 Active 0.1 mg IVPUSH ASDIRECTED PRN Ondansetron [Zofran] Med 08/04/20 07:33 Active 4 mg IV Q4H PRN Oxytocin/Normal Saline [Pitocin in NS 20 Units/1,000 ML Med 08/04/20 08:00 Active ] 20 unit in 1,000 ml IV TITRATE Ropivacaine [Naropin 0.2%] 200 mg Med 08/04/20 07:45 Active Premix Bag 1 bag EPIDUR ASDIRECTED Sodium Chloride 0.9% [Saline Flush] Med 08/04/20 07:33 Active 10 ml FLUSH ASDIRECTED PRN diphenhydrAMINE [Benadryl] Med 08/04/20 07:33 Active 25 mg IVPUSH Q6H PRN diphenhydrAMINE [Benadryl] Med 08/04/20 07:33 Active 50 mg IVPUSH Q6H PRN ePHEDrine [ePHEDrine sulfate] Med 08/04/20 07:33 Active 10 mg IVPUSH ASDIRECTED PRN ePHEDrine [ePHEDrine sulfate] Med 08/04/20 07:33 Active 10 mg IVPUSH ASDIRECTED PRN DVT/VTE Prophylaxis Reflex [OM.PC] Routine Oth 08/04/20 07:33 Ordered Epidural Catheter Management [OM.PC] Routine Oth 08/04/20 07:33 Ordered Epidural Catheter Management [OM.PC] Urgent Oth 08/04/20 07:33 Ordered Peripheral IV Insertion Pediatric [OM.PC] Routine Oth 08/04/20 07:33 Ordered Saline Lock Insert [OM.PC] Routine Oth 08/04/20 07:33 Ordered Resuscitation Status Routine Resus Stat 08/04/20 07:33 Ordered Medication Orders Acetaminophen (Tylenol) 650 mg PO Q4H PRN PRN Reason: Pain (Mild 1-3) and fever Diphenhydramine HCl (Benadryl) 25 mg IVPUSH Q6H PRN PRN Reason: Itching Diphenhydramine HCl (Benadryl) 50 mg IVPUSH Q6H PRN PRN Reason: Itching Ephedrine Sulfate (Ephedrine Sulfate) 10 mg IVPUSH ASDIRECTED PRN PRN Reason: Hypotension Ephedrine Sulfate (Ephedrine Sulfate) 10 mg IVPUSH ASDIRECTED PRN PRN Reason: Hypotension Ropivacaine 200 mg/ Premix 100 mls @ 0 mls/hr EPIDUR ASDIRECTED LISA Lactated Ringer's (Ringers, Lactated) 1,000 mls @ 999 mls/hr IV .BOLUS ONE Stop: 08/04/20 08:33 Last Admin: 08/04/20 07:39 Dose: 999 mls/hr Documented by: JAI Oxytocin/Sodium Chloride (Pitocin In Ns 20 Units/1,000 Ml) 20 unit in 1,000 mls @ 6 mls/hr IV TITRATE LISA; Protocol Last Admin: 08/04/20 08:24 Dose: 2 munits/min, 6 mls/hr Documented by: JAI Naloxone HCl (Narcan) 0.1 mg IVPUSH ASDIRECTED PRN PRN Reason: Oversedation Ondansetron HCl (Zofran) 4 mg IV Q4H PRN PRN Reason: Nausea/Vomiting Sodium Chloride (Saline Flush) 10 ml FLUSH ASDIRECTED PRN PRN Reason: Keep Vein Open Assessment/Plan Comment:: 08/04/2020 24 yo here at 40 0/7 weeks for elective induction of labor but came in in labor so will be an augmentation of labor instead SVE-/-1 FHTs category one Contractions every 4-6 minutes Uncomfortable with contractions and would like an epidural Labs-B positive, HIV neg, Hep B neg, Hep C neg, RPR nonreactive, Rubella Immune, GBS negative Plan- Continue to monitor labor Continue to monitor FHTS Epidural for pain control Plan and anticipate a vaginal delivery
[2020-08-04] MEDS ORDERED: Ropivacaine 100 ML ONE (10:09)
--- NOTE | 2020-08-04 11:22 | ANES ---
DATE OF SERVICE: 08/04/2020 INDICATIONS: Amado is a 24-year-old female, patient of Krysten Solis in our Obstetric Unit. I was contacted to assess the patient for labor epidural. Upon arrival, I found a healthy 24-year-old female, I reviewed with her history as well as procedure and lab work, found no contraindications to epidural placement. Consent was received. TECHNIQUE: I had her seated at the edge of the bed. Betadine prep x3. Sterile drape was placed. 1% lidocaine skin wheal as well as deep at L3-4 region. A 17-gauge Tuohy was placed to loss of resistance. Negative CSF, negative heme, negative paresthesia. A Silicone catheter was placed to 12 cm. Needle was removed. A test dose of 3 mL of 1.5% lidocaine 1:200,000 epinephrine with negative sequelae. The catheter was secured to her back. Placed in the supine position and dosed with 12 mL of 0.2% ropivacaine and began an infusion of the same 12 mL an hour, the same ropivacaine 0.2%. She tolerated the procedure quite well. Please refer to nurse's notes for vital signs and neuro status, which were unchanged and within normal limits. I discussed with her the time it would take for the epidural to start help. She tolerated the procedure quite well. Chito Todd CRNA /[id number]
[2020-08-04] MEDS ORDERED: Acetaminophen 325 MG Tab, 50 Tab Bulk Bottle PO PRN (13:14)
[2020-08-04] MEDS ORDERED: Docusate Sodium 100 MG Cap PO PRN (13:14)
[2020-08-04] MEDS ORDERED: Ibuprofen 200 MG Tab, 24 Tab Bulk Bottle PO PRN (13:14)
[2020-08-04] MEDS ORDERED: Witch Hazel Medicated Pads 100/Jar TOP ONE (14:00)
[2020-08-04] MEDS ORDERED: Lanolin 100% Cream 40 GM Tube TOP ONE (14:00)
[2020-08-04] MEDS ORDERED: Benzocaine 20% Top Spray 56 GM Bottle TOP ONE (14:00)
--- NOTE | 2020-08-04 17:37 | PCM.DEL ---
L & D Note - General Info Date of Service: 08/04/20 Mother's Due Date: 08/04/20 - Delivery Note Labor: Augmented by Oxytocin Delivery Outcome: Livebirth Infant Delivery Method: Spontaneous Vaginal Delivery-Single Delivery Mode: Spontaneous Presentation: Left Occiput Anterior (NINI) Nuchal Cord: Present, Reduced Anesthesia Type: Epidural Amniotic Fluid Description: Clear Episiotomy Type: None Laceration: None Placenta: Intact, Spontaneous Cord: 3 Vessels, True Knot Estimated Blood Loss: 300 Resuscitation Needed: No [place]: Suctioned (5ml), Bulb Syringe, Stimulated, Warmed, [place] Used Score 1 min: 7 Score 5 min: 8 Second Stage Interventions: Reports: Second Nurse Assessed Progress of Descent, Second Nurse Reviewed Contraction Pattern, Second Nurse Reviewed Heart Tones, Encouragement Given, Pushing Effectively, Pushing, McRobert's Position, Pushing, Pulls Own Legs Back, Pushing, Stirrups/Leg Supports Delivery Comments (Free Text/Narrative):: 24 yo delivered a viable female infant at 1245 on 08/04/2020 in NINI position with compound left hand by face, over an intact perineum. Patient went very quickly after epidural, and pushed very effectively. Infant was delivered and a nuchal cord was easily reduced and was noted to have a true knot. Delayed cord clamping was done for approximately 90 seconds, cord was then double clamped by provider and cut by father of , Three vessel cord noted. was then placed up on mothers abdomen on prewarmed blankets, was dried, stimulated, warmed and bulb suctioned. Infant was a little slow to cry so deep suctioning was done for a 5ml of amniotic fluid return, infant tolerated well. APGARS-7/8/8, weight-7lbs 0oz, length-19.5 inches. then pinked in color and was able to go skin to skin with mother. Placenta came intact, EBL-300ml, no lacerations noted of labia, vagina, perineum, cervix, or rectum. Pitocin now wide open for active management of third stage. Infant now remains skin to skin and bother mother and infant are stable in labor and delivery room. Stages of labor- 1st [id number] 2nd [id number] 3rd [id number] - General Info Date of Service: 08/04/20 Functional Status: Reports: Pain Controlled - Review of Systems General: Reports: No Symptoms HEENT: Reports: No Symptoms Pulmonary: Reports: No Symptoms Cardiovascular: Reports: No Symptoms Gastrointestinal: Reports: No Symptoms Genitourinary: Reports: No Symptoms Musculoskeletal: Reports: No Symptoms Skin: Reports: No Symptoms Neurological: Reports: No Symptoms Psychiatric: Reports: No Symptoms - Patient Data Vitals - Most Recent: Last Vital Signs Temp 36.8 C 08/04/20 17:00 Pulse 76 08/04/20 17:00 Resp 18 08/04/20 17:00 BP 126/54 L 08/04/20 17:00 Pulse Ox 98 08/04/20 17:00 Weight - Most Recent: 93 kg Lab Results Last 24 Hours: Laboratory Results - last 24 hr 08/04/20 08/04/20 08/04/20 Range/Units 06:55 06:55 06:55 WBC 15.6 H (4.5-11.0) K/uL RBC 4.07 (3.30-5.50) M/uL Hgb 12.3 (12.0-15.0) g/dL Hct 36.7 (36.0-48.0) % MCV 90 (80-98) fL MCH 30 (27-31) pg MCHC 34 (32-36) % Plt Count 263 (150-400) K/uL Neut % (Auto) 75 H (36-66) % Lymph % (Auto) 17 L (24-44) % [place] % (Auto) 7 H (2-6) % Eos % (Auto) 1 L (2-4) % Baso % (Auto) 0 (0-1) % Urine Color Yellow (YELLOW) Urine Appearance Cloudy A (CLEAR) Urine pH 7.0 (5.0-8.0) Ur Specific [place] 1.025 (1.008-1.030) Urine Protein Negative (NEGATIVE) mg/dL Urine Glucose (UA) Negative (NEGATIVE) mg/dL Urine Ketones Negative (NEGATIVE) mg/dL Urine Occult Blood Trace-intact H (NEGATIVE) Urine Nitrite Negative (NEGATIVE) Urine Bilirubin Negative (NEGATIVE) Urine Urobilinogen 1.0 (0.2-1.0) EU/dL Ur Leukocyte Esterase Moderate H (NEGATIVE) Urine RBC 0-5 (0-5) Urine WBC 50-75 H (0-5) Ur Epithelial Cells Many Amorphous Sediment Not seen Urine Bacteria Moderate Urine Mucus Few Urine Opiates Screen Negative (NEGATIVE) Ur Oxycodone Screen Negative (NEGATIVE) Urine Methadone Screen Negative (NEGATIVE) Ur Propoxyphene Screen Negative (NEGATIVE) Ur Barbiturates Screen Negative (NEGATIVE) Ur Tricyclics Screen Negative (NEGATIVE) Ur Phencyclidine Scrn Negative (NEGATIVE) Ur Amphetamine Screen Negative (NEGATIVE) U Methamphetamines Scrn Negative (NEGATIVE) Urine MDMA Screen Negative (NEGATIVE) U Benzodiazepines Scrn Negative (NEGATIVE) U Cocaine Metab Screen Negative (NEGATIVE) U Marijuana (THC) Screen Negative (NEGATIVE) Med Orders - Current: Current Medications Acetaminophen (Tylenol) 650 mg PO Q4H PRN PRN Reason: Pain (Mild 1-3) and fever Last Admin: 08/04/20 13:43 Dose: 650 mg Documented by: Acetaminophen (Tylenol Bulk Bottle) 325 - 650 mg PO Q4H PRN PRN Reason: Pain Last Admin: 08/04/20 13:48 Dose: 650 mg Documented by: Diphenhydramine HCl (Benadryl) 25 mg IVPUSH Q6H PRN PRN Reason: Itching Diphenhydramine HCl (Benadryl) 50 mg IVPUSH Q6H PRN PRN Reason: Itching Docusate Sodium (Colace) 100 mg PO BID PRN PRN Reason: Constipation Ephedrine Sulfate (Ephedrine Sulfate) 10 mg IVPUSH ASDIRECTED PRN PRN Reason: Hypotension Last Admin: 08/04/20 10:32 Dose: 10 mg Documented by: Ephedrine Sulfate (Ephedrine Sulfate) 10 mg IVPUSH ASDIRECTED PRN PRN Reason: Hypotension Ropivacaine 200 mg/ Premix 100 mls @ 0 mls/hr EPIDUR ASDIRECTED LISA Last Admin: 08/04/20 10:00 Dose: 12 mls/hr Documented by: Oxytocin/Sodium Chloride (Pitocin In Ns 20 Units/1,000 Ml) 20 unit in 1,000 mls @ 6 mls/hr IV TITRATE LISA; Protocol Last Titration: 08/04/20 12:15 Dose: 2 munits/min, 6 mls/hr Documented by: Oxytocin/Sodium Chloride (Pitocin In Ns 20 Units/1,000 Ml) 20 unit in 1,000 mls @ 2,997 mls/hr IV TITRATE LISA; Protocol Ibuprofen (Motrin Bulk Bottle) 600 mg PO Q6H PRN PRN Reason: Pain Last Admin: 08/04/20 13:43 Dose: 600 mg Documented by: Naloxone HCl (Narcan) 0.1 mg IVPUSH ASDIRECTED PRN PRN Reason: Oversedation Ondansetron HCl (Zofran) 4 mg IV Q4H PRN PRN Reason: Nausea/Vomiting Sodium Chloride (Saline Flush) 10 ml FLUSH ASDIRECTED PRN PRN Reason: Keep Vein Open Discontinued Medications Benzocaine ([id number] 20% [place]) 0 gm TOP ONETIME ONE Stop: 08/04/20 14:01 Last Admin: 08/04/20 13:44 Dose: 1 spr Documented by: Emollient Ointment (Lansinoh Hpa) 1 gm TOP ONETIME ONE Stop: 08/04/20 14:01 Last Admin: 08/04/20 13:44 Dose: 1 gm Documented by: Lactated Ringer's (Ringers, Lactated) 1,000 mls @ 999 mls/hr IV .BOLUS ONE Stop: 08/04/20 08:33 Last Admin: 08/04/20 07:39 Dose: 999 mls/hr Documented by: Ropivacaine (Naropin 0.2%) Confirm Administered Dose 100 mls @ as directed .ROUTE .STK-MED ONE Stop: 08/04/20 10:10 Lactated Ringer's (Ringers, Lactated) 1,000 mls @ 999 mls/hr IV BOLUS ONE Stop: 08/04/20 12:35 Last Admin: 08/04/20 11:35 Dose: 999 mls/hr Documented by: Misoprostol (Cytotec) 50 mcg VAG ONETIME ONE Stop: 08/04/20 07:31 Last Admin: 08/04/20 12:36 Dose: Not Given Documented by: Bill Coello) 1 pad TOP ONETIME ONE Stop: 08/04/20 14:01 Last Admin: 08/04/20 13:43 Dose: 1 pad Documented by: - Exam General: Alert, Oriented, Cooperative HEENT: Pupils Equal, Pupils Reactive, EOMI, Mucous Membr. Moist/[place] Neck: Supple Lungs: Clear to Auscultation, Normal Respiratory Effort Cardiovascular: Regular Rate, Regular Rhythm GI/Abdominal Exam: Normal Bowel Sounds, Soft, Non-Tender, No Organomegaly, No Distention, No Abnormal Bruit, No Mass, Pelvis Stable (Female) Exam: Normal External Exam, Normal Speculum Exam, Normal Bimanual Exam, Enlarged Uterus, Vaginal Bleeding Back Exam: Normal Inspection, Full Range of Motion Extremities: Normal Inspection, Normal Range of Motion, Non-Tender, No Pedal Edema, Normal Capillary Refill Skin: Warm, Dry, Intact Neurological: No New Focal Deficit Psy/Mental Status: Alert, Normal Affect, Normal Mood - Problem List & Annotations (1) Labor established SNOMED Code(s): 74920622 Code(s): UTL6751 - Status: Acute Current Visit: Yes (2) SNOMED Code(s): 29522933 Code(s): Z34.90 - ENCNTR FOR SUPRVSN OF NORMAL , UNSP, UNSP TRIMESTER Status: Acute Current Visit: No Qualifiers: Weeks of gestation: 40 weeks Qualified Code(s): Z3A.40 - 40 weeks gestation of (3) Tobacco abuse SNOMED Code(s): 597659544 Code(s): Z72.0 - TOBACCO USE Status: Acute Current Visit: No (4) () SNOMED Code(s): 871007944 Code(s): Z78.9 - OTHER SPECIFIED HEALTH STATUS Status: Acute Current Visit: No (5) Normal vaginal delivery SNOMED Code(s): 81186874, 515776224 Code(s): O80 - ENCOUNTER FOR FULL-TERM UNCOMPLICATED DELIVERY Status: Acute Current Visit: No - Problem List Review Problem List Initiated/Reviewed/Updated: Yes - My Orders Last 24 Hours: My Active Orders 08/04/20 07:33 Patient Status [ADT] Routine Ambulate [RC] PER UNIT ROUTINE Communication Order [RC] ASDIRECTED Communication Order [RC] ASDIRECTED Communication Order [RC] ROUTINE Communication Order [RC] ROUTINE Communication Order [RC] ROUTINE Heart Tones [RC] PER UNIT ROUTINE Notify Provider Vital Signs [RC] PRN Notify Provider [RC] PRN Oxygen Therapy [RC] ASDIRECTED Pulse Oximetry [RC] ASDIRECTED Up ad [place] [RC] ASDIRECTED Vital Signs [RC] PER UNIT ROUTINE Acetaminophen [TylenoL] 650 mg PO Q4H PRN Naloxone [Narcan] 0.1 mg IVPUSH ASDIRECTED PRN Ondansetron [Zofran] 4 mg IV Q4H PRN Sodium Chloride 0.9% [Saline Flush] 10 ml FLUSH ASDIRECTED PRN diphenhydrAMINE [Benadryl] 25 mg IVPUSH Q6H PRN diphenhydrAMINE [Benadryl] 50 mg IVPUSH Q6H PRN ePHEDrine [ePHEDrine sulfate] 10 mg IVPUSH ASDIRECTED PRN ePHEDrine [ePHEDrine sulfate] 10 mg IVPUSH ASDIRECTED PRN DVT/VTE Prophylaxis Reflex [OM.PC] Routine Epidural Catheter Management [OM.PC] Routine Epidural Catheter Management [OM.PC] Urgent Peripheral IV Insertion Pediatric [OM.PC] Routine Saline Lock Insert [OM.PC] Routine Resuscitation Status Routine 08/04/20 07:34 PCEA Epidural [RC] ASDIRECTED Peripheral IV Care [RC] . DIRECTED 08/04/20 07:36 VTE/DVT Education [RC] Click to Edit 08/04/20 07:45 Insert Urinary Catheter [OM.PC] ASDIRECTED Ropivacaine [Naropin 0.2%] 200 mg Premix Bag 1 bag EPIDUR ASDIRECTED 08/04/20 08:00 Oxytocin/Normal Saline [Pitocin in NS 20 Units/1,000 ML] 20 unit in 1,000 ml IV TITRATE 08/04/20 12:48 Oxytocin/Normal Saline [Pitocin in NS 20 Units/1,000 ML] 20 unit in 1,000 ml IV TITRATE 08/04/20 13:14 Consult to Functional Manager [CONS] Routine Acetaminophen [Tylenol Bulk Bottle] 325 - 650 mg PO Q4H PRN Docusate Sodium [Colace] 100 mg PO BID PRN Ibuprofen [Motrin Bulk Bottle] 600 mg PO Q6H PRN Assess Lochia [WOMSER] Per Unit Routine Assess Uterine Involution [WOMSER] Per Unit Routine 08/04/20 13:15 Patient Status [ADT] Routine 08/04/20 13:16 Perineal Care [OM.PC] Per Unit Routine 08/05/20 06:00 CBC WITH AUTO DIFF [HEME] Routine - Assessment Assessment:: 08/04/2020 without complications Smoker - Plan Plan:: 08/04/2020 24 yo here at 40 0/7 weeks for elective induction of labor but came in in labor so will be an augmentation of labor instead SVE-/-1 FHTs category one Contractions every 4-6 minutes Uncomfortable with contractions and would like an epidural Labs-B positive, HIV neg, Hep B neg, Hep C neg, RPR nonreactive, Rubella Immune, GBS negative Plan- Continue to monitor labor Continue to monitor FHTS Epidural for pain control Plan and anticipate a vaginal delivery 08/04/2020 Routine cares Support and encourage Discharge home in 24-48 hours
--- NOTE | 2020-08-05 07:46 | PCM.PNPP ---
- General Info Date of Service: 08/05/20 Functional Status: Reports: Pain Controlled - Review of Systems General: Reports: No Symptoms HEENT: Reports: No Symptoms Pulmonary: Reports: No Symptoms Cardiovascular: Reports: No Symptoms Gastrointestinal: Reports: No Symptoms Genitourinary: Reports: No Symptoms Musculoskeletal: Reports: No Symptoms Skin: Reports: No Symptoms Neurological: Reports: No Symptoms Psychiatric: Reports: No Symptoms - General Info Date of Service: 08/05/20 - Patient Data Vital Signs - Most Recent: Last Vital Signs Temp 36.8 C 08/05/20 05:16 Pulse 83 08/05/20 05:16 Resp 18 08/05/20 05:16 BP 120/56 L 08/05/20 05:16 Pulse Ox 98 08/05/20 05:16 Weight - Most Recent: 93 kg Lab Results - Last 24 Hours: Laboratory Results - last 24 hr 08/05/20 Range/Units 05:00 WBC 14.5 H (4.5-11.0) K/uL RBC 3.56 (3.30-5.50) M/uL Hgb 10.7 L (12.0-15.0) g/dL Hct 32.3 L (36.0-48.0) % MCV 91 (80-98) fL MCH 30 (27-31) pg MCHC 33 (32-36) % Plt Count 222 (150-400) K/uL Neut % (Auto) 85 H (36-66) % Lymph % (Auto) 10 L (24-44) % [place] % (Auto) 5 (2-6) % Eos % (Auto) 0 L (2-4) % Baso % (Auto) 0 (0-1) % Med Orders - Current: Current Medications Acetaminophen (Tylenol) 650 mg PO Q4H PRN PRN Reason: Pain (Mild 1-3) and fever Last Admin: 08/04/20 13:43 Dose: 650 mg Documented by: Acetaminophen (Tylenol Bulk Bottle) 325 - 650 mg PO Q4H PRN PRN Reason: Pain Last Admin: 08/04/20 13:48 Dose: 650 mg Documented by: Diphenhydramine HCl (Benadryl) 25 mg IVPUSH Q6H PRN PRN Reason: Itching Diphenhydramine HCl (Benadryl) 50 mg IVPUSH Q6H PRN PRN Reason: Itching Docusate Sodium (Colace) 100 mg PO BID PRN PRN Reason: Constipation Ephedrine Sulfate (Ephedrine Sulfate) 10 mg IVPUSH ASDIRECTED PRN PRN Reason: Hypotension Last Admin: 08/04/20 10:32 Dose: 10 mg Documented by: Ephedrine Sulfate (Ephedrine Sulfate) 10 mg IVPUSH ASDIRECTED PRN PRN Reason: Hypotension Ropivacaine 200 mg/ Premix 100 mls @ 0 mls/hr EPIDUR ASDIRECTED LISA Last Admin: 08/04/20 10:00 Dose: 12 mls/hr Documented by: Oxytocin/Sodium Chloride (Pitocin In Ns 20 Units/1,000 Ml) 20 unit in 1,000 mls @ 6 mls/hr IV TITRATE LISA; Protocol Last Titration: 08/04/20 12:15 Dose: 2 munits/min, 6 mls/hr Documented by: Oxytocin/Sodium Chloride (Pitocin In Ns 20 Units/1,000 Ml) 20 unit in 1,000 mls @ 2,997 mls/hr IV TITRATE LISA; Protocol Ibuprofen (Motrin Bulk Bottle) 600 mg PO Q6H PRN PRN Reason: Pain Last Admin: 08/04/20 13:43 Dose: 600 mg Documented by: Naloxone HCl (Narcan) 0.1 mg IVPUSH ASDIRECTED PRN PRN Reason: Oversedation Ondansetron HCl (Zofran) 4 mg IV Q4H PRN PRN Reason: Nausea/Vomiting Sodium Chloride (Saline Flush) 10 ml FLUSH ASDIRECTED PRN PRN Reason: Keep Vein Open Discontinued Medications Benzocaine (Siwd-N-Pdxixlm 20% [place]) 0 gm TOP ONETIME ONE Stop: 08/04/20 14:01 Last Admin: 08/04/20 13:44 Dose: 1 spr Documented by: Emollient Ointment (Lansinoh Hpa) 1 gm TOP ONETIME ONE Stop: 08/04/20 14:01 Last Admin: 08/04/20 13:44 Dose: 1 gm Documented by: Lactated Ringer's (Ringers, Lactated) 1,000 mls @ 999 mls/hr IV .BOLUS ONE Stop: 08/04/20 08:33 Last Admin: 08/04/20 07:39 Dose: 999 mls/hr Documented by: Ropivacaine (Naropin 0.2%) Confirm Administered Dose 100 mls @ as directed .ROUTE .STK-MED ONE Stop: 08/04/20 10:10 Lactated Ringer's (Ringers, Lactated) 1,000 mls @ 999 mls/hr IV BOLUS ONE Stop: 08/04/20 12:35 Last Admin: 08/04/20 11:35 Dose: 999 mls/hr Documented by: Misoprostol (Cytotec) 50 mcg VAG ONETIME ONE Stop: 08/04/20 07:31 Last Admin: 08/04/20 12:36 Dose: Not Given Documented by: Bill Coello) 1 pad TOP ONETIME ONE Stop: 08/04/20 14:01 Last Admin: 08/04/20 13:43 Dose: 1 pad Documented by: - Infant Interaction Infant Disposition, : in Room with Family Infant Interaction: Holding Infant Feeding: Breastfed ; Nursed Well (now had a poor night with feeding) Support Person: Significant Other - Recovery Exam Fundal Tone: Firm Fundal Level: 1 Fingerbreadths Below Umbilicus Fundal Placement: Midline Lochia Amount: Moderate Lochia Color: Rubra/Red Perineum Description: Intact, Minimal Bruising/Swelling Episiotomy/Laceration: None Bladder Status: Voiding - Exam General: Alert, Oriented, Cooperative HEENT: Pupils Equal, Pupils Reactive, EOMI, Mucous Membr. Moist/[place] Neck: Supple Lungs: Clear to Auscultation, Normal Respiratory Effort Cardiovascular: Regular Rate, Regular Rhythm GI/Abdominal Exam: Normal Bowel Sounds, Soft, Non-Tender, No Organomegaly, No Distention, No Abnormal Bruit, No Mass, Pelvis Stable Extremities: Normal Inspection, Normal Range of Motion, Non-Tender, No Pedal Edema, Normal Capillary Refill Skin: Warm, Dry, Intact Neurological: No New Focal Deficit Psy/Mental Status: Alert, Normal Affect, Normal Mood - Problem List & Annotations (1) Labor established SNOMED Code(s): 97430094 Code(s): IMO9949 - Status: Acute Current Visit: Yes (2) SNOMED Code(s): 20844099 Code(s): Z34.90 - ENCNTR FOR SUPRVSN OF NORMAL , UNSP, UNSP TRIMESTER Status: Acute Current Visit: No Qualifiers: Weeks of gestation: 40 weeks Qualified Code(s): Z3A.40 - 40 weeks gestation of (3) Tobacco abuse SNOMED Code(s): 064095364 Code(s): Z72.0 - TOBACCO USE Status: Acute Current Visit: No (4) (infant) SNOMED Code(s): 522864431 Code(s): Z78.9 - OTHER SPECIFIED HEALTH STATUS Status: Acute Current Visit: No (5) Normal vaginal delivery SNOMED Code(s): 11241681, 749286755 Code(s): O80 - ENCOUNTER FOR FULL-TERM UNCOMPLICATED DELIVERY Status: Acute Current Visit: No - Problem List Review Problem List Initiated/Reviewed/Updated: Yes - My Orders Last 24 Hours: My Active Orders 08/04/20 07:33 Patient Status [ADT] Routine Ambulate [RC] PER UNIT ROUTINE Communication Order [RC] ASDIRECTED Communication Order [RC] ASDIRECTED Communication Order [RC] ROUTINE Communication Order [RC] ROUTINE Communication Order [RC] ROUTINE Heart Tones [RC] PER UNIT ROUTINE Notify Provider Vital Signs [RC] PRN Notify Provider [RC] PRN Oxygen Therapy [RC] ASDIRECTED Pulse Oximetry [RC] ASDIRECTED Up ad [place] [RC] ASDIRECTED Vital Signs [RC] PER UNIT ROUTINE Acetaminophen [TylenoL] 650 mg PO Q4H PRN Naloxone [Narcan] 0.1 mg IVPUSH ASDIRECTED PRN Ondansetron [Zofran] 4 mg IV Q4H PRN Sodium Chloride 0.9% [Saline Flush] 10 ml FLUSH ASDIRECTED PRN diphenhydrAMINE [Benadryl] 25 mg IVPUSH Q6H PRN diphenhydrAMINE [Benadryl] 50 mg IVPUSH Q6H PRN ePHEDrine [ePHEDrine sulfate] 10 mg IVPUSH ASDIRECTED PRN ePHEDrine [ePHEDrine sulfate] 10 mg IVPUSH ASDIRECTED PRN DVT/VTE Prophylaxis Reflex [OM.PC] Routine Epidural Catheter Management [OM.PC] Routine Epidural Catheter Management [OM.PC] Urgent Peripheral IV Insertion Pediatric [OM.PC] Routine Saline Lock Insert [OM.PC] Routine Resuscitation Status Routine 08/04/20 07:34 PCEA Epidural [RC] ASDIRECTED Peripheral IV Care [RC] . DIRECTED 08/04/20 07:36 VTE/DVT Education [RC] Click to Edit 08/04/20 07:45 Insert Urinary Catheter [OM.PC] ASDIRECTED Ropivacaine [Naropin 0.2%] 200 mg Premix Bag 1 bag EPIDUR ASDIRECTED 08/04/20 08:00 Oxytocin/Normal Saline [Pitocin in NS 20 Units/1,000 ML] 20 unit in 1,000 ml IV TITRATE 08/04/20 12:48 Oxytocin/Normal Saline [Pitocin in NS 20 Units/1,000 ML] 20 unit in 1,000 ml IV TITRATE 08/04/20 13:14 Consult to Head Of Digital [CONS] Routine Acetaminophen [Tylenol Bulk Bottle] 325 - 650 mg PO Q4H PRN Docusate Sodium [Colace] 100 mg PO BID PRN Ibuprofen [Motrin Bulk Bottle] 600 mg PO Q6H PRN Assess Lochia [WOMSER] Per Unit Routine Assess Uterine Involution [WOMSER] Per Unit Routine 08/04/20 13:15 Patient Status [ADT] Routine 08/04/20 13:16 Perineal Care [OM.PC] Per Unit Routine 08/05/20 Breakfast Regular Diet [DIET] - Assessment Assessment:: 08/04/2020 without complications Smoker 08/05/2020 without complications Day One Fundus firm and bleeding decreasing fair-poor during night better this am Smoker Desires 24 hour discharge home later today - Plan Plan:: 08/04/2020 24 yo here at 40 0/7 weeks for elective induction of labor but came in in labor so will be an augmentation of labor instead SVE-/- FHTs category one Contractions every 4-6 minutes Uncomfortable with contractions and would like an epidural Labs-B positive, HIV neg, Hep B neg, Hep C neg, RPR nonreactive, Rubella Immune, GBS negative Plan- Continue to monitor labor Continue to monitor FHTS Epidural for pain control Plan and anticipate a vaginal delivery 08/04/2020 Routine cares Support and encourage Discharge home in 24-48 hours 08/05/2020 Continue routine cares Continue to support and encourage Discharge home later today
== END 2020-08-05 02:13 | disposition home or self-care (01) | DRG 807 ==
LOC: JP.OB 06:45 → OBSVTOIN 12:45 → JP.MS 12:46
PROVIDERS: ADMIT Advanced Practice Midwife; ATTEND Advanced Practice Midwife
PROC: 10E0XZZ Delivery of Products of Conception, External Approach (ICD-10-PCS; principal; 2020-08-04)
PROC: 10907ZC Drainage of Amniotic Fluid, Therapeutic from Products of Conception, Via Natural or Artificial Opening (ICD-10-PCS; 2020-08-04)
PROC: 3E0R3BZ Introduction of Anesthetic Agent into Spinal Canal, Percutaneous Approach (ICD-10-PCS; 2020-08-04)
PROC: 00HU33Z Insertion of Infusion Device into Spinal Canal, Percutaneous Approach (ICD-10-PCS; 2020-08-04)
DX: O48.0 Post-term pregnancy (principal); Z37.0 Single live birth; Z3A.40 40 weeks gestation of pregnancy; O99.334 Smoking (tobacco) complicating childbirth; F17.210 Nicotine dependence, cigarettes, uncomplicated; O69.81X0 Labor and delivery complicated by cord around neck, without compression, not applicable or unspecified
CPT/HCPCS: 36415; 51702; 59409; 80305-QW; 81001; 85025; 99211; A9270-GY; J2590; J2795; J7120

== ENCOUNTER 2023-06-14 18:42 | Emergency (ER) | payer MEDICAID ==
[2023-06-14] MEDS ORDERED: Ondansetron 4 MG/2 ML SDV IVPUSH ONE (20:10)
[2023-06-14] MEDS ORDERED: Sodium Chloride 0.9% 1,000 ML IV SCH (20:15)
[2023-06-14 20:21] LABS: BASOPHILS ABSOLUTE AUTO 0.06 K/uL (0.00-0.10); BASOPHILS PERCENT AUTO 0.4 % (0.1-1.3); EOSINOPHILS ABSOLUTE AUTO 0.05 K/uL (0.00-0.40); EOSINOPHILS PERCENT AUTO 0.4 % (0.0-5.4); HEMATOCRIT 41.2 % (34.3-46.0); HEMOGLOBIN 14.1 g/dL (11.2-15.5); IMMATURE GRAN ABSOLUTE AUTO 0.05 K/uL (0.00-0.23); IMMATURE GRAN PERCENT AUTO 0.4 % (0.0-0.7); LYMPHOCYTES ABSOLUTE AUTO 1.57 K/uL (0.8-3.3); LYMPHOCYTES PERCENT AUTO 11.1 % (11.4-47.7); MEAN CORPUSCULAR HEMOGLOBIN 30.3 pg (31.6-35.5); MEAN CORPUSCULAR HGB CONC 34.2 g/dL (31.6-35.5); MEAN CORPUSCULAR VOLUME 88.4 fL (81.4-99.0); MONOCYTES ABSOLUTE AUTO 0.69 K/uL (0.20-0.90); MONOCYTES PERCENT AUTO 4.9 % (3.3-12.6); NEUTROPHILS ABSOLUTE AUTO 11.72 K/uL (1.0-7.6); NEUTROPHILS PERCENT AUTO 82.8 % (40.0-78.1); PLATELET COUNT,PLT 308 K/uL (130-375); RED BLOOD CELL COUNT 4.66 M/uL (3.77-5.24); WHITE BLOOD CELL COUNT,WBC 14.1 K/uL (3.2-11.0)
[2023-06-14 20:22] LABS: CORONAVIRUS COVID-19 NAA NEGATIVE (NEGATIVE); INFLUENZA A NAA NEGATIVE (NEGATIVE); INFLUENZA B NAA NEGATIVE (NEGATIVE); RESPIRATORY SYNCYTIAL VIR NAA NEGATIVE (NEGATIVE)
[2023-06-14 20:42] LABS: A/G RATIO 1.2 (1.2-2.2); ALANINE AMINOTRANSFERASE,ALT 22 U/L (12-78); ALBUMIN 3.9 g/dL (3.4-5.0); ALKALINE PHOSPHATASE 60 U/L (46-116); ANION GAP 10.2 mmol/L (5.0-14.0); ASPARTATE AMNIOTRANSFERASE,AST 19 U/L (15-37); BILIRUBIN TOTAL 0.4 mg/dL (0.2-1.0); BLOOD UREA NITROGEN,BUN 6 mg/dL (7-18); C-REACTIVE PROTEIN < 0.50 mg/dL (<0.50); CARBON DIOXIDE,CO2 26 mmol/L (21-32); CHLORIDE,CL 107 mmol/L (100-108); CREATININE 0.7 mg/dL (0.6-1.0); EST CRCL DRUG DOSING (CG) 106.09 mL/min; ESTIMATED GFR 123 mL/min (>60); GLUCOSE RANDOM 99 mg/dL (74-106); PROTEIN TOTAL,TP 7.2 g/dL (6.4-8.2); SODIUM,NA 143 mmol/L (140-148)
[2023-06-14] MEDS ORDERED: Prochlorperazine 10 MG/2 ML SDV IVPUSH ONE (20:43)
[2023-06-14] MEDS ORDERED: diphenhydrAMINE 50 MG/ML SDV IVPUSH ONE (20:43)
[2023-06-14] MEDS ORDERED: Ketorolac 30 MG/ML SDV IVPUSH ONE (20:43)
== END 2023-06-14 22:35 | disposition home or self-care (01) ==
LOC: JP.ED 18:42
DX: G43.909 Migraine, unspecified, not intractable, without status migrainosus (principal); F17.210 Nicotine dependence, cigarettes, uncomplicated; Z86.16 Personal history of COVID-19; Z20.822 Contact with and (suspected) exposure to COVID-19; Z91.030 Bee allergy status; Z91.011 Allergy to milk products; Z91.010 Allergy to peanuts
CPT/HCPCS: 0241U; 36415; 80053; 85025; 86140; 96361; 96374; 96375; 99284; J0780; J1200; J1885; J2405; J7030